=== PATIENT | male | born 1975 | race American Indian/Alaskan Native ===

== ENCOUNTER 2019-08-30 08:57 | Emergency (ER) | payer BC ==
[2019-08-30] MEDS ORDERED: ACETAMINOPHEN 325 MG TAB PO ONE (10:31)
--- NOTE | 2019-08-30 10:34 | Emergency Department Report ---
ED General Adult HPI - General Chief complaint: Upper Respiratory Infection Stated complaint: FLU SYM Time Seen by Provider: 08/30/19 10:25 Source: patient Mode of arrival: Ambulatory Limitations: No Limitations - History of Present Illness Initial comments: 44-year-old -[place]in[place] male patient complains of cough fever/chills/bodyaches and 2 days. He states his cough is productive of yellow mucus. He denies any shortness of breath or chest pain. He states [id number] cold medications are not helping with his symptoms. Patient is fever is tactile. He admits to loss of appetite, but denies any nausea/vomiting/diarrhea or abdominal pain. -: Sudden Severity scale (0 -10): 0 - Related Data Previous Rx's Medication Instructions Recorded Last Taken Type Benzonatate 200 mg PO TID PRN #30 capsule 08/30/19 Unknown Rx Ibuprofen [Motrin 800 MG tab] 800 mg PO Q8HR PRN #21 tablet 08/30/19 Unknown Rx Ondansetron [Zofran Odt] 4 mg PO Q8HR PRN #15 tab.rapdis 08/30/19 Unknown Rx Oseltamivir [Tamiflu] 75 mg PO BID 5 Days #10 cap 08/30/19 Unknown Rx Allergies Allergy/AdvReac Type Severity Reaction Status Date / Time No Known Allergies Allergy Unverified 08/30/19 09:01 ED Review of Systems ROS: Stated complaint: FLU SYM Other details as noted in HPI Constitutional: see HPI ENT: denies: throat pain Respiratory: cough. denies: shortness of breath Musculoskeletal: myalgia ED Past Medical Hx - Past Medical History Previous Medical History?: No - Surgical History Past Surgical History?: No - Social History Smoking Status: Unknown if ever smoked Substance Use Type: None - Medications Home Medications: Home Medications Medication Instructions Recorded Confirmed Last Taken Type Benzonatate 200 mg PO TID PRN #30 capsule 08/30/19 Unknown Rx Ibuprofen [Motrin 800 MG tab] 800 mg PO Q8HR PRN #21 tablet 08/30/19 Unknown Rx Ondansetron [Zofran Odt] 4 mg PO Q8HR PRN #15 tab.rapdis 08/30/19 Unknown Rx Oseltamivir [Tamiflu] 75 mg PO BID 5 Days #10 cap 08/30/19 Unknown Rx ED Physical Exam - General Limitations: No Limitations General appearance: alert, in no apparent distress, other (patient appears tired and fatigued) - Head Head exam: Present: atraumatic, normocephalic - Eye Eye exam: Present: normal appearance - ENT ENT exam: Present: mucous membranes moist - Neck Neck exam: Present: normal inspection - Respiratory Respiratory exam: Present: normal lung sounds bilaterally. Absent: respiratory distress, wheezes, rales, rhonchi, stridor - Cardiovascular Cardiovascular Exam: Present: regular rate, normal rhythm. Absent: systolic murmur, diastolic murmur, rubs, gallop - GI/Abdominal GI/Abdominal exam: Present: soft. Absent: tenderness - Extremities Exam Extremities exam: Present: normal inspection - Back Exam Back exam: Present: normal inspection - Neurological Exam Neurological exam: Present: alert, oriented X3 - Psychiatric Psychiatric exam: Present: normal affect, normal mood ED Course Vital Signs 08/30/19 08/30/19 09:02 10:00 Temperature 100.1 F H 100.1 F H Pulse Rate 90 95 H Respiratory 22 18 Rate Blood Pressure 141/86 Blood Pressure 144/86 [Left] O2 Sat by Pulse 99 Oximetry ED Medical Decision Making - Medical Decision Making 44-year-old -[place] male patient complains of cough fever/chills/bodyaches and 2 days. Chest x-ray is negative for pneumonia. She noted to have a low-grade fever of 100.1 upon arrival. Fever has not resolved with Tylenol. Patient's symptoms and exam are consistent with influenza. Patient is stable for discharge home. Will prescribe Tamiflu and symptomatic medications. Recommend follow with PCP in 5-7 days. Discussed strict return precautions in detail with patient who states understanding. Critical care attestation.: If time is entered above; I have spent that time in minutes in the direct care of this critically ill patient, excluding procedure time. ED Disposition Clinical Impression: Influenza Disposition: DC-01 TO HOME OR SELFCARE Is pt being admited?: No Condition: Stable Instructions: Influenza (ED) Prescriptions: Benzonatate 200 mg PO TID PRN #30 capsule PRN Reason: Cough Ibuprofen [Motrin 800 MG tab] 800 mg PO Q8HR PRN #21 tablet PRN Reason: fever/pain Oseltamivir [Tamiflu] 75 mg PO BID 5 Days #10 cap Ondansetron [Zofran Odt] 4 mg PO Q8HR PRN #15 tab.rapdis PRN Reason: Nausea Referrals: PRIMARY CARE, [Primary Care Provider] - 7-10 days
--- NOTE | 2019-08-30 10:54 | XRay Report ---
PA AND LATERAL CXR HISTORY: Cough, fever COMPARISON: None FINDINGS: Cardiomediastinal silhouette: Normal cardiac size. Normal mediastinal contours. Lungs: Normal expansion. Normal lung aeration. No pleural effusions. No pneumothorax. Pulmonary vascularity: Normal. Support hardware: None. Additional findings: None. IMPRESSION: No evidence of acute cardiopulmonary disease. Signer Name: Leonel Fisher MD Signed: 08/30/2019 10:49 AM Workstation Name: [id number]
[2019-08-30 11:54] VITALS: BP 140/82
== END 2019-08-30 11:53 | disposition home or self-care (01) ==
LOC: ED 08:57
DX: J11.1 Influenza due to unidentified influenza virus with other respiratory manifestations (principal)
CPT/HCPCS: 71046; 99283